=== PATIENT | male | born 1995 | race Hispanic/Latino ===

== ENCOUNTER 2017-02-18 07:56 | Emergency (ER) | payer OTHER ==
[2017-02-18 08:00] VITALS: BP 121/51; PULSE 80; TEMP 97; O2SAT 99; BMI 24.3
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
== END 2017-02-18 09:02 | disposition home or self-care (01) ==
LOC: H.ER 07:56
DX: S00.81XA Abrasion of other part of head, initial encounter (principal); V43.52XA Car driver injured in collision with other type car in traffic accident, initial encounter; Y92.410 Unspecified street and highway as the place of occurrence of the external cause; J45.909 Unspecified asthma, uncomplicated